=== PATIENT | female | born 1975 | race Caucasian/White ===

== ENCOUNTER 2017-09-01 19:08 | Emergency (ER) | payer OTHER ==
[~2017-09-01] VITALS: Ht 162.6 cm; Wt 62.0 kg
[~2017-09-01 19:08] MED LIST: ASPIR 8181 M1 PO; MULTIVITAMIN1 EAC2 PO; OSTEO BI-FLEX1 EAC3 PO
[2017-09-01 19:56] LABS: HEMATOCRIT 39.8 % (36.0-46.0); MCHC 34.7 G/DL (30.0-36.0); MCV 86.5 FL (83-99); MEAN PLAT.VOLUME 9.1 uM^3 (9.5-12.4); PLATELET COUNT 197 K/uL (156-360); RBC DIS.WIDTH-CV 12.1 % (11.8-14.6); RBC DIS.WIDTH-SD 38.5 % (39-53); WHITE BLOOD COUNT 6.1 K/uL (4.1-10.2)
[2017-09-01 20:07] LABS: CHLORIDE 104 mEq/L (99-109); SODIUM 137 mEq/L (136-147)
[2017-09-01 20:09] LABS: GLUCOSE 86 mg/dL (70-99)
[2017-09-01 20:10] LABS: ANION GAP 8 MEQ/L (2-14)
[2017-09-01 20:13] LABS: GFR ESTIMATE (CALCULATED) > 59 mL/min/
[2017-09-01 20:14] LABS: UREA NITROGEN (BUN) 9 mg/dL (9-23)
[2017-09-01 21:36] LABS: D-DIMER ELISA < 150.00 ng/mLDDU (<230)
[2017-09-01 22:14] LABS: TROP-I INTERPRETATION NEGATIVE; TROPONIN-I < 0.01 ng/mL (0.0-0.30)
[2017-09-01 23:04] LABS: TROP-I INTERPRETATION NEGATIVE; TROPONIN-I < 0.01 ng/mL (0.0-0.30)
[2017-09-01 23:55] VITALS: BP 107/65
== END 2017-09-02 | disposition home or self-care (01) ==
LOC: EME → EDBD 19:08 → EME 19:08
PROVIDERS: Emergency Medicine; Nurse Practitioner Family
DX: R07.9 Chest pain, unspecified (principal); M79.661 Pain in right lower leg; F32.9 Major depressive disorder, single episode, unspecified; Z79.82 Long term (current) use of aspirin
CPT/HCPCS: 71020; 80048; 84484; 85027; 85379; 93005; 93971; 99281; 99285

== ENCOUNTER 2018-07-04 18:14 | Emergency (ER) | payer OTHER ==
[~2018-07-04] VITALS: Ht 162.6 cm; Wt 61.8 kg
[2018-07-04] MEDS ORDERED: NAPROXEN500 MG PO (21:08)
[2018-07-04] MEDS ORDERED: VALIUM5 MG PO (21:08)
[2018-07-04] MEDS ORDERED: NORCO 5/3251 TABLET PO (21:08)
[2018-07-04 21:30] VITALS: BP 116/69
== END 2018-07-04 21:30 | disposition home or self-care (01) ==
LOC: EME 18:14
DX: M62.838 Other muscle spasm (principal); M54.2 Cervicalgia; Z88.5 Allergy status to narcotic agent
CPT/HCPCS: 72125; 99281; 99284; J1885; J2060